=== PATIENT | male | born 1955 | race Caucasian/White ===

== ENCOUNTER 2019-07-23 12:04 | Emergency (ER) | payer OTHER ==
[2019-07-23] MEDS ORDERED: LEVALBUTEROL 1.25 MG/3 ML NEB ONE (12:43)
[2019-07-23] MEDS ORDERED: NA CHLORIDE 0.9% 500 ML ONE (12:43)
--- NOTE | 2019-07-23 12:43 | RAD REPORT ---
EXAM DESCRIPTION: CT - Ct Stroke Brain Wo Cont - 07/23/2019 12:28 pm CLINICAL HISTORY: CVA COMPARISON: 2011 TECHNIQUE: Computed axial tomography of the head was obtained. All CT scans are performed using dose optimization technique as appropriate and may include automated exposure control or mA/KV adjustment according to patient size. FINDINGS: An acute intracranial bleed is not seen . Low-density within the right frontal lobe may b e secondary to an old bleed or old infarct. Small old right cerebellar infarct present The ventricles are normal in caliber. No extra-axial fluid collection is noted. 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 Artifact from the metal obscures surroundi ng detail. Fluid within the sinuses/ mastoids is not seen. IMPRESSION: No acute intracranial abnormality is seen. Dr Samson of the emergency room was notified at 12:36 p.m. on July 23, 2018
[2019-07-23 12:51] LABS: Absolute Lymphocytes (CBC) 1.9 K/uL (0.7-4.9); Basophils % 0.4 % (0-1.3); Hematocrit 39.1 % (39.6-49.0); Lymphocytes % 25.4 % (15.3-44.8); MPV 8.6 fL (7.6-11.3); RBC Red Blood Cell Count 3.89 M/uL (4.33-5.43)
[2019-07-23 12:55] LABS: Protime INR 1.01
[2019-07-23 13:00] LABS: Potassium 3.8 mmol/L (3.5-5.1); Troponin (Emerg Dept Use Only) 0.02 ng/mL (0.0-0.045)
--- NOTE | 2019-07-23 13:00 | EKG ---
Test Date: 2019-07-23 Test Time: 11:58:43 Shearing Supervisor: RAMYA MEASUREMENT RESULTS: Intervals: Rate: 94 [place]: 148 QRSD: 88 QT: 378 QTc: 472 [place]: P: 84 [place]: 148 QRS: 91 T: 77 INTERPRETIVE STATEMENTS: Sinus rhythm with frequent premature ventricular complexes Right atrial enlargement Rightward axis Pulmonary disease pattern Moderate voltage criteria for LVH, may be normal variant Abnormal ECG Compared to ECG 07/17/2000 00:54:00 Ventricular premature complex(es) now present Atrial abnormality now present Right-axis deviation now present Electronically Signed On 07-23-19 12:59:13 WATER QUALITY ANALYST by Edwar Benites
--- NOTE | 2019-07-23 13:42 | RAD REPORT ---
EXAM DESCRIPTION: Sabina Single View07/23/2019 1:35 pm CLINICAL HISTORY: Cough COMPARISON: none FINDINGS: Calcified lung granulomas are present Lungs are hyperaerated The lungs appear clear of acute infiltrate. The heart is normal size IMPRESSION: No acute abnormalities displayed
[2019-07-23] MEDS ORDERED: cloNIDine HCL 0.1 MG TAB ONE (14:04)
--- NOTE | 2019-07-23 14:33 | ER ---
Nurse's Notes [facility] Name: Ashok Bonilla Age: 64 yrs Sex: Male : 1955 Arrival Date: 07/23/2019 Time: 12:06 Bed 3 Private MD: Diagnosis: Dizziness and giddiness;Hypertension Presentation: 07/23 12:07 Presenting complaint: EMS states: Flagged PD down while driving in car, unable to find hospital, c/o not feeling right. Reports dizziness x 3 days. BP 230/120, HR 80-90s, BGL 92. Transition of care: patient was not received from another setting of care. Onset of symptoms was July 23, 2019. Risk Assessment: Do you want to hurt yourself or someone else? Patient reports no desire to harm self or others. Care prior to arrival: None. 12:07 Method Of Arrival: EMS: [facility] 12:07 Acuity: ERVIN 2 hb 12:15 Initial Sepsis Screen: Does the patient meet any 2 criteria? No. Patient's initial hb sepsis screen is negative. Does the patient have a suspected source of infection? No. Patient's initial sepsis screen is negative. Historical: - Allergies: 12:13 No Known Allergies; hb - Home Meds: 13:54 Symbicort inhalation inhalation [Active]; ProAir HFA 90 mcg/actuation inhalation HFAA hb [Active]; Lisinopril Oral [Active]; Ibuprofen Oral [Active]; - PMHx: 13:54 Hypertension; hb - Immunization history:: Adult Immunizations up to date. - Ebola Screening: : No symptoms or risks identified at this time. - Family history:: not pertinent. - Social history:: Smoking status: Patient uses tobacco products, smokes one pack cigarettes per day. - Hospitalizations: : No recent hospitalization is reported. Screenin:15 Abuse screen: Denies threats or abuse. Denies injuries from another. Nutritional hb screening: No deficits noted. Tuberculosis screening: No symptoms or risk factors identified. Fall Risk None identified. 12:45 Patient has been NPO before screening. The patient is alert, able to follow commands. hb The patient does not exhibit slurred or garbled speech The patient is not exhibiting difficulty speaking. The patient does not exhibit difficulty understanding words. The patient is able to swallow own secretions with no drooling or need for suction. Patient tolerated one teaspoon of water. No drooling, immediate coughing, gurgling, or clearing of the throat was noted. The patient tolerated 90mL of water. No drooling, immediate coughing, gurgling, or clearing of the throat was noted. The patient passed the bedside swallow screening. Oral medications may be given as ordered. Contact Physician for further diet orders. Assessment: 12:12 Reassessment: VAN NEGATIVE, NIH 0. hb 12:15 General: Appears in no apparent distress. Behavior is calm, cooperative. Pain: Pain hb currently is 3 out of 10 on a pain scale. Neuro: Level of Consciousness is awake, alert, obeys commands, Oriented to person, place, situation, Reports Dizziness. Cardiovascular: Capillary refill < 3 seconds Patient's skin is warm and dry. Respiratory: Airway is patent Respiratory effort is even, unlabored, Respiratory pattern is regular, symmetrical, Breath sounds are clear bilaterally. GI: No signs and/or symptoms were reported involving the gastrointestinal system. : No signs and/or symptoms were reported regarding the genitourinary system. EENT: No signs and/or symptoms were reported regarding the EENT system. Derm: Skin is pink, warm \T\ dry. Musculoskeletal: No signs and/or symptoms reported regarding the musculoskeletal system. 13:15 Reassessment: Patient appears in no apparent distress at this time. Patient and/or hb family updated on plan of care and expected duration. Pain level reassessed. Patient is alert, oriented x 3, equal unlabored respirations, skin warm/dry/pink. 14:19 Reassessment: Patient appears in no apparent distress at this time. Patient and/or hb family updated on plan of care and expected duration. Pain level reassessed. Patient is alert, oriented x 3, equal unlabored respirations, skin warm/dry/pink. Vital Signs: 12:06 BP 180 / 114; Pulse 94; Resp 21; Temp 98.2; Pulse Ox 94% on R/A; Pain 3/10; hb 13:30 BP 191 / 107; Pulse 95; Resp 19; Pulse Ox 95% on R/A; Pain 0/10; hb 14:19 BP 178 / 107; Pulse 92; Resp 17; Pulse Ox 95% on R/A; hb 14:54 BP 170 / 98; Pulse 88; Resp 17; Pulse Ox 95% on R/A; Pain 0/10; hb ED Course: 12:06 Patient arrived in ED. hb 12:11 Triage completed. hb 12:11 Ever Samson MD is Attending Physician. rn 12:11 Arm band placed on. hb 12:15 Patient has correct armband on for positive identification. Placed in gown. Bed in low hb position. Call light in reach. Side rails up X 1. monitor technician on. Pulse ox on. NIBP on. 12:16 EKG done, by body shop technician. reviewed by Ever Samson MD. at1 12:23 Inserted saline lock: 20 gauge in right antecubital area, using aseptic technique. hb Blood collected. 12:34 CT Stroke Brain w/o Contrast In Process Unspecified. EDMS 13:29 Nell Ly, RN is Primary Nurse. hb 13:35 Stroke CXR 1 View In Process Unspecified. EDMS 14:55 No provider procedures requiring assistance completed. IV discontinued, intact, hb bleeding controlled, No redness/swelling at site. Pressure dressing applied. Administered Medications: 12:50 Drug: Xopenex (3) 1.25 mg Route: Inhalation; hb 13:34 Follow up: Response: No adverse reaction hb 12:50 Drug: NS 0.9% 500 ml Route: IV; Rate: bolus; Site: right antecubital; hb 13:34 Follow up: Response: No adverse reaction; IV Status: Completed infusion; IV Intake: hb 500ml 14:01 Drug: cloNIDine 0.2 mg Route: PO; hb 14:53 Follow up: Response: No adverse reaction hb Point of Care Testing: Blood Glucose: 12:06 Blood Glucose: 89 mg/dL; hb Ranges: Intake: 13:34 IV: 500ml; Total: 500ml. hb Outcome: 14:33 Discharge ordered by . rn 14:55 Discharged to home ambulatory. hb 14:55 Condition: stable 14:55 Discharge instructions given to patient, Instructed on discharge instructions, follow up and referral plans. medication usage, Demonstrated understanding of instructions, follow-up care, medications, Prescriptions given X 1. 14:56 Patient left the ED. hb Signatures: Dispatcher [employer] EDMS Ever Samson MD MD rn Gonzales, Amanda, finish mill operator EKG Tat1 Nell Ly RN RN hb Corrections: (The following items were deleted from the chart) : Acuity: ERVIN 2 hb hb : Acuity: ERVIN 3 hb hb
--- NOTE | 2019-07-23 14:34 | EDPHYS ---
Physician Documentation [facility] Name: Ashok Bonilla Age: 64 yrs Sex: Male : 1955 Arrival Date: 07/23/2019 Time: 12:06 Bed 3 Private MD: ED Physician Ever Samson HPI: 07/23 12:44 This 64 yrs old Male presents to ER via EMS with complaints of Dizziness, rn high BP. 12:44 The patient presents with dizziness. Onset: The symptoms/episode began/occurred at an rn unknown time. Modifying factors: The symptoms are alleviated by nothing, the symptoms are aggravated by nothing. Severity of symptoms: At their worst the symptoms were moderate in the emergency department the symptoms have improved. The patient has experienced similar episodes in the past. Reports dizzy and "doesn't feel right", on and off for 3 days, reports hx of aneurysmal bleed or "bleeding stroke" in past. No recent trauma. denies new neurological complaints. No chest pain. + smoker and reports mild cough and sob. Didn't know how to get to hospital so flagged down can handler, and brought in. states ran out of his BP meds a few days ago and feels that is the problem. Currently feeling better and reports neurologically at baseline.. Historical: - Allergies: 12:13 No Known Allergies; hb - Home Meds: 13:54 Symbicort inhalation inhalation [Active]; ProAir HFA 90 mcg/actuation inhalation HFAA hb [Active]; Lisinopril Oral [Active]; Ibuprofen Oral [Active]; - PMHx: 13:54 Hypertension; hb - Immunization history:: Adult Immunizations up to date. - Ebola Screening: : No symptoms or risks identified at this time. - Family history:: not pertinent. - Social history:: Smoking status: Patient uses tobacco products, smokes one pack cigarettes per day. - Hospitalizations: : No recent hospitalization is reported. ROS: 12:44 Constitutional: Negative for fever, chills, and weight loss, Eyes: Negative for injury, rn pain, redness, and discharge, Neck: Negative for injury, pain, and swelling, Cardiovascular: Negative for chest pain, palpitations, and edema, Respiratory: Negative for pleuritic chest pain, Abdomen/GI: Negative for abdominal pain, nausea, vomiting, diarrhea, and constipation, MS/Extremity: Negative for injury and deformity, Skin: Negative for injury, rash, and discoloration, Neuro: Negative for headache, numbness, tingling, and seizure. Exam: 12:44 Constitutional: This is a well developed, well nourished patient who is awake, alert, rn and in no acute distress. Texting or cummincating on his phone, legs crossed on bed Head/Face: Normocephalic, atraumatic. ENT: Dry MM, no swelling Cardiovascular: Regular rate and rhythm. No pulse deficits. Respiratory: Mild tachypnea with faint exp wheezing, no retractions Abdomen/GI: soft, non-tender MS/ Extremity: Pulses equal, no cyanosis. Neurovascular intact. Full, normal range of motion. Equal circumference. Neuro: Awake and alert, GCS 15, oriented to person, place, time, and situation. Cranial nerves II-XII grossly intact. Motor strength 5/5 in all extremities. Sensory grossly intact. Cerebellar exam normal. Vital Signs: 12:06 BP 180 / 114; Pulse 94; Resp 21; Temp 98.2; Pulse Ox 94% on R/A; Pain 3/10; hb 13:30 BP 191 / 107; Pulse 95; Resp 19; Pulse Ox 95% on R/A; Pain 0/10; hb 14:19 BP 178 / 107; Pulse 92; Resp 17; Pulse Ox 95% on R/A; hb 14:54 BP 170 / 98; Pulse 88; Resp 17; Pulse Ox 95% on R/A; Pain 0/10; hb MDM: 12:11 Patient medically screened. rn 14:32 Differential diagnosis: CVA, generalized weakness, hypovolemia, TIA, vertigo, rn hypertension. Data reviewed: vital signs, nurses notes, lab test result(s), EKG, radiologic studies, CT scan, plain films, and as a result, I will discharge patient. Counseling: I had a detailed discussion with the patient and/or guardian regarding: the historical points, exam findings, and any diagnostic results supporting the discharge/admit diagnosis, the presence of at least one elevated blood pressure reading (>120/80) during this emergency department visit, lab results, radiology results, the need for outpatient follow up, to return to the emergency department if symptoms worsen or persist or if there are any questions or concerns that arise at home. Response to treatment: the patient's condition has returned to base line, the patient is now symptom free, patient is well hydrated. and as a result, I will discharge patient. Special discussion: I have referred the patient to see his PCP for further evaluation of high blood pressure. I discussed with the patient/guardian in detail that at this point there is no indication for admission to the hospital. It is understood, however, that if the symptoms persist or worsen the patient needs to return immediately for re-evaluation. Based on the history and exam findings, there is no indication for further emergent testing or inpatient evaluation. I discussed with the patient/guardian the need to see the primary care provider for further evaluation of the symptoms. 07/23 12:16 Order name: Troponin (emerg Dept Use Only); Complete Time: 13:17 rn 07/23 12:16 Order name: Basic Metabolic Panel; Complete Time: 13:17 rn 07/23 12:16 Order name: CBC with Diff; Complete Time: 13:17 rn 07/23 12:16 Order name: Protime (+inr); Complete Time: 13:17 rn 07/23 12:16 Order name: Ptt, Activated; Complete Time: 13:17 rn 07/23 12:16 Order name: CT Stroke Brain w/o Contrast; Complete Time: 13:17 rn 07/23 12:16 Order name: Stroke CXR 1 View; Complete Time: 13:46 rn 07/23 12:16 Order name: EKG; Complete Time: 12:17 rn 07/23 12:16 Order name: Accucheck; Complete Time: 12:49 rn 07/23 12:16 Order name: Cardiac monitoring; Complete Time: 12:49 rn 07/23 12:16 Order name: EKG - Nurse/Tech; Complete Time: 12:49 rn 07/23 12:16 Order name: IV Saline Lock; Complete Time: 12:49 rn 07/23 12:16 Order name: Labs collected and sent; Complete Time: 12:49 rn 07/23 12:16 Order name: NPO; Complete Time: 12:49 rn 07/23 12:16 Order name: O2 Per Protocol; Complete Time: 12:49 rn 07/23 12:16 Order name: O2 Sat Monitoring; Complete Time: 12:49 rn 07/23 12:16 Order name: Stroke Swallow Screen; Complete Time: 13:06 rn Administered Medications: 12:50 Drug: Xopenex (3) 1.25 mg Route: Inhalation; hb 13:34 Follow up: Response: No adverse reaction hb 12:50 Drug: NS 0.9% 500 ml Route: IV; Rate: bolus; Site: right antecubital; hb 13:34 Follow up: Response: No adverse reaction; IV Status: Completed infusion; IV Intake: hb 500ml 14:01 Drug: cloNIDine 0.2 mg Route: PO; hb 14:53 Follow up: Response: No adverse reaction hb Point of Care Testing: Blood Glucose: 12:06 Blood Glucose: 89 mg/dL; hb Ranges: Critical Glucose Levels:Adult <50 mg/dl or >400 mg/dl <40 mg/dl or >180 mg/dl Disposition: 19 14:33 Discharged to Home. Impression: Dizziness and giddiness, Hypertension. - Condition is Stable. - Discharge Instructions: Dizziness, Hypertension. - Prescriptions for Lisinopril 20 mg Oral Tablet - take 1 tablet by ORAL route once daily; 60 tablet. - Medication Reconciliation Form, Thank You Letter, Antibiotic Education, Prescription Opioid Use form. - Follow up: Private Physician; When: As needed; Reason: Recheck today's complaints, Re-evaluation by your physician. - Problem is new. - Symptoms have improved. Signatures: Dispatcher [employer] EDMS Ever Samson MD MD rn Baxter, Heather, RN RN Corrections: (The following items were deleted from the chart) 14:56 14:33 07/23/2019 14:33 Discharged to Home. Impression: Dizziness and giddiness; hb Hypertension. Condition is Stable. Discharge Instructions: Hypertension. Prescriptions for Lisinopril 20 mg Oral Tablet - take 1 tablet by ORAL route once daily; 60 tablet. and Forms are Medication Reconciliation Form, Thank You Letter, Antibiotic Education, Prescription Opioid Use. Follow up: Private Physician; When: As needed; Reason: Recheck today's complaints, Re-evaluation by your physician. Problem is new. Symptoms have improved. rn
[2019-07-23 15:09] VITALS: TEMP 98.2
[2019-07-23 15:22] VITALS: BP 170/98; O2SAT 95
== END 2019-07-23 14:56 | disposition home or self-care (01) ==
LOC: ER 12:04
DX: I10 Essential (primary) hypertension (principal); F17.210 Nicotine dependence, cigarettes, uncomplicated
CPT/HCPCS: 93005; 85025; 80048; 36415; 85610; 82947; 85730; 84484; 70450; 71045; 96360; 99285; J7040

== ENCOUNTER 2020-01-11 19:23 | Emergency (ER) | payer OTHER ==
[2020-01-11] MEDS ORDERED: MORPHINE 4 MG/ML SYR ONE (20:02)
[2020-01-11] MEDS ORDERED: NA CHLORIDE 0.9% 1,000 ML ONE (20:03)
[2020-01-11] MEDS ORDERED: ONDANSETRON 4 MG/2 ML VIAL ONE (20:03)
[2020-01-11 20:36] LABS: Albumin 3.1 g/dL (3.4-5.0); Bilirubin Direct 0.2 mg/dL (0-0.2); Bilirubin Total 0.4 mg/dL (0.2-1.0); Protein, Total 8.1 g/dL (6.4-8.2)
[2020-01-11 20:39] LABS: Absolute Lymphocytes (CBC) 1.1 K/uL (0.7-4.9); Basophils % 0.5 % (0-1.3); Lymphocytes % 18.6 % (15.3-44.8); MPV 9.2 fL (7.6-11.3); RBC Red Blood Cell Count 4.04 M/uL (4.33-5.43)
[2020-01-11 20:42] LABS: Barbiturates NEGATIVE (NEGATIVE); Benzodiazepines NEGATIVE (NEGATIVE); Cocaine NEGATIVE (NEGATIVE); METHAMPHETAM POSITIVE (NEGATIVE); Methadone NEGATIVE (NEGATIVE); Opiates NEGATIVE (NEGATIVE); Phencyclidine NEGATIVE (NEGATIVE); THC Cannibis POSITIVE (NEGATIVE)
--- NOTE | 2020-01-11 21:29 | RAD REPORT ---
EXAM DESCRIPTION: CT - Abdomen Pelvis W Contrast - 01/11/2020 8:47 pm CLINICAL HISTORY: Abdominal pain COMPARISON: none. TECHNIQUE: Computed axial tomography of the abdomen pelvis was obtained. 100 cc Isovue-300 was admin istered intravenously. Oral contrast was not requested which limits evaluation of bowel. All CT scans are performed using dose optimization technique as appropriate and may include automated exposure control or mA/KV adjustment according to patient size. FINDINGS: The liver, spleen, pancreas, adrenal and kidneys appear unremarkable. There is no evidence of diverticulitis. Large amount stool is present throughout the colon. 18 millim eters soft tissue structure anterior rectum Mild gastric distention. Mild left inguinal lymphadenopathy IMPRESSION: Large amount of stool within the colon 18 millimeter soft tissue structure anterior rectum may represent mass or adherent stool. Mild left inguinal lymphadenopathy
[2020-01-11 22:04] LABS: Urine Blood TRACE (NEG); Urine Glucose NEGATIVE (NEG); Urine Protein 1+ (NEG); Urine Specific Gravity >1.030 (1.005-1.030)
[2020-01-11 22:17] VITALS: TEMP 98.1
[2020-01-11 22:19] VITALS: BP 151/84; O2SAT 96
--- NOTE | 2020-01-14 17:26 | EDPHYS ---
Physician Documentation [facility] Name: Ashok Bonilla Age: 64 yrs Sex: Male : 1955 Arrival Date: 01/11/2020 Time: 19:28 Bed 15 Private MD: ED Physician Júnior Leigh HPI: 01/10 19:53 This 64 yrs old Male presents to ER via Ambulatory with complaints of mh7 Abdominal pain. 19:53 The patient presents with abdominal pain in the left lower quadrant. Onset: The mh7 symptoms/episode began/occurred 4 day(s) ago. The symptoms radiate to the left flank. Associated signs and symptoms: Pertinent negatives: nausea and vomiting, anorexia, blood in stools, chest pain, constipation, diarrhea, dysuria, fever, headache, hematuria, nausea, palpitations, shortness of breath, testicular pain, vomiting, vomiting blood. The symptoms are described as intermittent, vague, waxing/waning. Modifying factors: The symptoms are alleviated by nothing, the symptoms are aggravated by movement. Severity of pain: At its worst the pain was moderate today, in the emergency department the pain is unchanged. Historical: - Allergies: 19:36 No Known Allergies; ca1 - PMHx: 19:36 Hypertension; COPD; CVA; Aneurysm; ca1 - PSHx: 19:36 Head surgery; abdominal surgery; ca1 - Immunization history:: Adult Immunizations up to date. - Social history:: Smoking status: Patient reports the use of cigarette tobacco products, smokes one pack cigarettes per day. ROS: 19:53 Constitutional: Negative for fever, chills, and weight loss, Eyes: Negative for injury, mh7 pain, redness, and discharge, ENT: Negative for injury, pain, and discharge, Neck: Negative for injury, pain, and swelling, Cardiovascular: Negative for chest pain, palpitations, and edema, Respiratory: Negative for shortness of breath, cough, wheezing, and pleuritic chest pain, : Negative for injury, bleeding, discharge, and swelling, MS/Extremity: Negative for injury and deformity, Skin: Negative for injury, rash, and discoloration, Neuro: Negative for headache, weakness, numbness, tingling, and seizure, Psych: Negative for depression, anxiety, suicide ideation, homicidal ideation, and hallucinations, Allergy/Immunology: Negative for hives, rash, and allergies, Endocrine: Negative for neck swelling, polydipsia, polyuria, polyphagia, and marked weight changes, Hematologic/Lymphatic: Negative for swollen nodes, abnormal bleeding, and unusual bruising. Exam: 19:53 Constitutional: This is a well developed, well nourished patient who is awake, alert, mh7 and in no acute distress. Head/Face: Normocephalic, atraumatic. Neck: Trachea midline, no thyromegaly or masses palpated, and no cervical lymphadenopathy. Supple, full range of motion without nuchal rigidity, or vertebral point tenderness. No Meningismus. Chest/axilla: Normal chest wall appearance and motion. Nontender with no deformity. No lesions are appreciated. Cardiovascular: Regular rate and rhythm with a normal S1 and S2. No gallops, murmurs, or rubs. Normal PMI, no JVD. No pulse deficits. Respiratory: Lungs have equal breath sounds bilaterally, clear to auscultation and percussion. No rales, rhonchi or wheezes noted. No increased work of breathing, no retractions or nasal flaring. 19:53 Skin: Warm, dry with normal turgor. Normal color with no rashes, no lesions, and no evidence of cellulitis. MS/ Extremity: Pulses equal, no cyanosis. Neurovascular intact. Full, normal range of motion. Neuro: Awake and alert, GCS 15, oriented to person, place, time, and situation. Cranial nerves II-XII grossly intact. Motor strength 5/5 in all extremities. Sensory grossly intact. Cerebellar exam normal. Normal gait. Psych: Awake, alert, with orientation to person, place and time. Behavior, mood, and affect are within normal limits. 19:53 Abdomen/GI: Inspection: scar(s), are noted in the epigastric area, Bowel sounds: normal, in all quadrants, Palpation: moderate abdominal tenderness, in the left lower quadrant, Rectal exam: the exam is deferred, because of patient request, Indicators: McBurney's point is not tender, Gray's sign is negative, Rovsing's sign is negative, Obturator sign is negative, Psoas sign is negative, Liver: no appreciated palpable abnormalities. 19:53 Back: pain, that is moderate, ROM is normal, normal spinal alignment noted, CVA tenderness, that is moderate, is noted on the left, vertebral tenderness, is not appreciated, muscle spasm, is not present. 19:53 : CVA tenderness, on the left. 21:48 Abdomen/GI: Rectal exam: Prostate: normal, rectal tone normal, Stool: brown, guaiac mh7 negative, hemorrhoid(s), are not appreciated, mass, is not appreciated, swelling, is not appreciated, tenderness, is not appreciated, fecal impaction, is not appreciated, the exam is chaperoned by the nurse, Hernia: not appreciated. Vital Signs: 19:31 BP 127 / 86; Pulse 82; Resp 16 S; Temp 98.1(TE); Pulse Ox 95% on R/A; Weight 49.9 kg ca1 (R); Height 6 ft. 1 in. (185.42 cm) (R); Pain 8/10; 20:36 BP 151 / 89; Pulse 75; Resp 17 S; Pulse Ox 97% on R/A; Pain 3/10; jd3 21:47 BP 151 / 84; Pulse 76; Resp 19 S; Pulse Ox 96% on R/A; jd3 19:31 Body Mass Index 14.51 (49.90 kg, 185.42 cm) ca1 MDM: 19:47 Patient medically screened. mh7 19:59 Differential diagnosis: bowel obstruction, diverticulitis, non-specific abd pain, mh7 Pyelonephritis, Ureterolithiasis, urinary tract infection. 21:48 Data reviewed: vital signs, nurses notes, lab test result(s), CBC, drug level(s), mh7 electrolytes, urinalysis, radiologic studies, CT scan. Data interpreted: Pulse oximetry: on room air is 96 %. Interpretation: normal. Counseling: I had a detailed discussion with the patient and/or guardian regarding: the historical points, exam findings, and any diagnostic results supporting the discharge/admit diagnosis, the presence of at least one elevated blood pressure reading (>120/80) during this emergency department visit, lab results, radiology results, the need for outpatient follow up, to return to the emergency department if symptoms worsen or persist or if there are any questions or concerns that arise at home. Medication response: morphine relieved the patient's pain. Symptoms have resolved. Response to treatment: the patient's symptoms have resolved after treatment, the patient's blood pressure is in an acceptable range, mental status has returned to baseline, the patient no longer shows bradycardia, the patient is not short of breath, the patient is not tachycardic, the patient's pain is gone, the patient's temperature has normalized. 01/10 19:50 Order name: Basic Metabolic Panel; Complete Time: 20:42 [facility] 01/10 19:50 Order name: CBC with Diff; Complete Time: 20:57 [facility] 01/10 19:50 Order name: Hepatic Function; Complete Time: 20:42 [facility] 01/10 19:50 Order name: Lipase; Complete Time: 20:42 [facility] 01/10 19:50 Order name: UDS; Complete Time: 20:42 [facility] 01/10 20:23 Order name: Urine Dipstick--Ancillary (enter results) mt 01/10 19:50 Order name: IV Saline Lock; Complete Time: 20:11 [facility] 01/10 19:50 Order name: Labs collected and sent; Complete Time: 20:11 [facility] 01/10 19:50 Order name: Urine Dipstick-Ancillary (obtain specimen); Complete Time: 20:11 [facility] 01/10 19:50 Order name: CT Abd/Pelvis - IV Contrast Only; Complete Time: 21:31 [facility] 01/10 20:43 Order name: CREATININE WHOLE BLOOD; Complete Time: 20:42 EDMS Administered Medications: 20:12 Drug: NS 0.9% 1000 ml Route: IV; Rate: 1000 ml; Site: right antecubital; jd3 21:10 Follow up: Response: No adverse reaction; IV Status: Completed infusion; IV Intake: jd3 1000ml 20:13 Drug: morphine 4 mg Route: IVP; Site: right antecubital; jd3 20:37 Follow up: Response: No adverse reaction; RASS: Alert and Calm (0) jd3 20:13 Drug: Zofran (Ondansetron) 4 mg Route: IVP; Site: right antecubital; jd3 20:37 Follow up: Response: No adverse reaction jd3 Disposition: 01/11/20 21:53 Discharged to Home. Impression: Lower abdominal pain, unspecified, Constipation, Rectal Mass, Methamphetamine Abuse. - Condition is Stable. - Discharge Instructions: Abdominal Pain, Adult, Constipation, Adult, [id number], Stimulant Use Disorder-Methamphetamines. - Prescriptions for Colace 100 mg Oral Tablet - take 1 tablet by ORAL route every 12 hours; 14 tablet. Lactulose 10 gram/15 mL Oral Solution - take 30 milliliters by ORAL route once daily; 150 milliliter. Dulcolax 10 mg Rectal Suppository - insert 1 suppository by RECTAL route once daily As needed; 5 suppository. - Medication Reconciliation Form, Thank You Letter, Antibiotic Education, Prescription Opioid Use form. - Follow up: Private Physician; When: 2 - 3 days; Reason: Worsening of condition, Re-evaluation by your physician. Follow up: Bacilio Miner MD; When: 2 - 3 days; Reason: Worsening of condition, Recheck today's complaints. - Problem is new. - Symptoms have improved. Signatures: Dispatcher [employer] Sachin Boswell RN RN jd3 Acob, JUDE Mayes RN ca1 Júnior Leigh MD MD mh7 Corrections: (The following items were deleted from the chart) 22:08 21:53 01/11/2020 21:53 Discharged to Home. Impression: Lower abdominal pain, jd3 unspecified; Constipation; Rectal Mass; Methamphetamine Abuse. Condition is Stable. Forms are Medication Reconciliation Form, Thank You Letter, Antibiotic Education, Prescription Opioid Use. Follow up: Private Physician; When: 2 - 3 days; Reason: Worsening of condition, Re-evaluation by your physician. Follow up: Bacilio Miner; When: 2 - 3 days; Reason: Worsening of condition, Recheck today's complaints. Problem is new. Symptoms have improved. mh7
--- NOTE | 2020-01-14 17:26 | ER ---
Nurse's Notes [facility] Name: Ashok Bonilla Age: 64 yrs Sex: Male : 1955 Arrival Date: 01/11/2020 Time: 19:28 Bed 15 Private MD: Diagnosis: Lower abdominal pain, unspecified;Constipation;Rectal Mass;Methamphetamine Abuse Presentation: 01/10 19:31 Chief complaint: Patient states: Moved a lumber 3 days ago, felt a sharp on L lower ca1 inguinal area now states, "I have a knot on my L lower groin area". Reports hx of hernia. Reports pain, worst with movement. Coronavirus screen: Proceed with normal triage. Patient denies a cough. Patient denies shortness of breath or difficulty breathing. Patient denies measured and/or subjective temperature greater than 100.4F prior to today's visit. Patient denies travel on a cruise ship or to a country the [facility] currently lists as an affected area. Patient denies contact with known and/or suspected case of COVID-19. Ebola Screen: Patient negative for fever greater than or equal to 101.5 degrees Fahrenheit, and additional compatible Ebola Virus Disease symptoms Patient denies exposure to infectious person. Patient denies travel to an Ebola-affected area in the 21 days before illness onset. No symptoms or risks identified at this time. Initial Sepsis Screen: Does the patient meet any 2 criteria? No. Patient's initial sepsis screen is negative. Does the patient have a suspected source of infection? No. Patient's initial sepsis screen is negative. Risk Assessment: Do you want to hurt yourself or someone else? Patient reports no desire to harm self or others. Onset of symptoms was January 11, 2020. 19:31 Method Of Arrival: Ambulatory ca1 19:31 Acuity: ERVIN 3 ca1 Historical: - Allergies: 19:36 No Known Allergies; ca1 - PMHx: 19:36 Hypertension; COPD; CVA; Aneurysm; ca1 - PSHx: 19:36 Head surgery; abdominal surgery; ca1 - Immunization history:: Adult Immunizations up to date. - Social history:: Smoking status: Patient reports the use of cigarette tobacco products, smokes one pack cigarettes per day. Screenin:46 Abuse screen: Denies threats or abuse. Nutritional screening: No deficits noted. jd3 Tuberculosis screening: No symptoms or risk factors identified. Fall Risk Ambulatory Aid- None/Bed Rest/Nurse Assist (0 pts). Gait- Normal/Bed Rest/Wheelchair (0 pts) Mental Status- Oriented to own ability (0 pts). Total Mckenzie Fall Scale indicates No Risk (0-24 pts). Assessment: 19:44 General: Appears in no apparent distress. uncomfortable, Behavior is calm, cooperative, jd3 appropriate for age. Pain: Complains of pain in left inguinal area Quality of pain is described as squeezing, tender. Neuro: Level of Consciousness is awake, alert, obeys commands, Oriented to person, place, time, situation. Cardiovascular: Denies chest pain, Capillary refill < 3 seconds Patient's skin is warm and dry. Respiratory: Airway is patent Respiratory effort is even, unlabored, Respiratory pattern is regular, symmetrical, Denies cough, shortness of breath. GI: Abdomen is flat, non-distended, Abd is soft and non tender X 4 quads. Reports diarrhea, Patient currently denies constipation, nausea, vomiting. : No signs and/or symptoms were reported regarding the genitourinary system. EENT: No signs and/or symptoms were reported regarding the EENT system. Derm: Skin is intact, Skin is dry, Skin is normal, Skin temperature is warm. Musculoskeletal: Circulation, motion, and sensation intact. Range of motion: intact in all extremities, Swelling present in left inguinal area. 20:36 Reassessment: Patient appears in no apparent distress at this time. Patient and/or jd3 family updated on plan of care and expected duration. Pain level reassessed. Patient is alert, oriented x 3, equal unlabored respirations, skin warm/dry/pink. Patient states feeling better. 21:47 Reassessment: Patient appears in no apparent distress at this time. Patient and/or jd3 family updated on plan of care and expected duration. Pain level reassessed. Patient is alert, oriented x 3, equal unlabored respirations, skin warm/dry/pink. Patient states feeling better. Vital Signs: 19:31 BP 127 / 86; Pulse 82; Resp 16 S; Temp 98.1(TE); Pulse Ox 95% on R/A; Weight 49.9 kg ca1 (R); Height 6 ft. 1 in. (185.42 cm) (R); Pain 8/10; 20:36 BP 151 / 89; Pulse 75; Resp 17 S; Pulse Ox 97% on R/A; Pain 3/10; jd3 21:47 BP 151 / 84; Pulse 76; Resp 19 S; Pulse Ox 96% on R/A; jd3 19:31 Body Mass Index 14.51 (49.90 kg, 185.42 cm) ca1 ED Course: 19:28 Patient arrived in ED. bp1 19:35 Triage completed. ca1 19:36 Júnior Leigh MD is Attending Physician. mh7 19:36 Arm band placed on right wrist. ca1 19:39 Sachin Mock RN is Primary Nurse. jd3 19:46 Patient has correct armband on for positive identification. Placed in gown. Bed in low jd3 position. Call light in reach. Side rails up X 1. Adult w/ patient. Pulse ox on. NIBP on. 20:10 Inserted saline lock: 20 gauge in right antecubital area, using aseptic technique. jd3 Blood collected. 20:47 CT Abd/Pelvis - IV Contrast Only In Process Unspecified. EDMS 21:47 Served as a tube bender during rectal exam. aj1 21:51 Bacilio Miner MD is Referral Physician. mh7 22:07 IV discontinued, intact, bleeding controlled, No redness/swelling at site. Pressure jd3 dressing applied. Administered Medications: 20:12 Drug: NS 0.9% 1000 ml Route: IV; Rate: 1000 ml; Site: right antecubital; jd3 21:10 Follow up: Response: No adverse reaction; IV Status: Completed infusion; IV Intake: jd3 1000ml 20:13 Drug: morphine 4 mg Route: IVP; Site: right antecubital; jd3 20:37 Follow up: Response: No adverse reaction; RASS: Alert and Calm (0) jd3 20:13 Drug: Zofran (Ondansetron) 4 mg Route: IVP; Site: right antecubital; jd3 20:37 Follow up: Response: No adverse reaction jd3 Intake: 21:10 IV: 1000ml; Total: 1000ml. jd3 Outcome: 21:53 Discharge ordered by . 7 22:07 Discharged to home ambulatory, with family. jd3 22:07 Condition: stable 22:07 Discharge instructions given to patient, Instructed on discharge instructions, follow up and referral plans. medication usage, Demonstrated understanding of instructions, follow-up care, medications, Prescriptions given X 3. 22:08 Patient left the ED. jd3 Signatures: Dispatcher [employer] EDMS Roma Galicia RN RN aj1 Sachin Mock RN RN jd3 Sugey Clayton RN RN ca1 Jenny Reed Maurice, MD MD mh7 Corrections: (The following items were deleted from the chart) 20:36 20:36 BP 151 / 89; Pulse 75bpm; Resp 17bpm; Spontaneous; Pulse Ox 97% RA; jd3 jd3
== END 2020-01-11 22:08 | disposition home or self-care (01) ==
LOC: ER 19:23
DX: K59.00 Constipation, unspecified (principal); K62.89 Other specified diseases of anus and rectum; F15.10 Other stimulant abuse, uncomplicated; I10 Essential (primary) hypertension; F17.210 Nicotine dependence, cigarettes, uncomplicated; J44.9 Chronic obstructive pulmonary disease, unspecified
CPT/HCPCS: 96361; 85025; 80048; 36415; 82565; 80076; 80307 ×8; 81003; 83690; 74177; 96375; 96374; 99284; Q9967; J7030; J2405